=== PATIENT | female | born 1975 | race Caucasian/White ===

== ENCOUNTER 2022-01-02 18:27 | Emergency (ER) | payer SELFPAY | END 2022-01-02 20:13 | disposition left against medical advice (07) | LOC: FER 18:27 | DX: R11.2 Nausea with vomiting, unspecified (principal); R42 Dizziness and giddiness; R20.2 Paresthesia of skin; R20.0 Anesthesia of skin; Z53.29 Procedure and treatment not carried out because of patient's decision for other reasons | CPT/HCPCS: 99281 ==